=== PATIENT | male | born 1960 | race Caucasian/White ===

== ENCOUNTER 2016-11-27 03:06 | Inpatient (IN) | payer OTHER ==
[2016-11-27] VITALS (31 sets, daily range): BP systolic 64–145; BP diastolic 47–82; PULSE 74–101; TEMP 36.4–36.9; O2SAT 96–100; Ht 137.2 cm; Wt 112.4 kg
[~2016-11-27] VITALS: Ht 137.2 cm; Wt 112.4 kg
[2016-11-27] MEDS ORDERED: ACETAMINOPHEN 325 MG TAB PO PRN (04:00)
[2016-11-27] MEDS ORDERED: ZOLPIDEM TARTRATE 5 MG TAB PO PRN (04:00)
[2016-11-27] MEDS ORDERED: MoRPHine SULFATE 2 MG/ML CARP IV PRN (04:00)
[2016-11-27] MEDS ORDERED: NITROGLYCERIN 0.4 MG SL PER TAB CHARGE SL PRN (04:00)
[2016-11-27] MEDS ORDERED: ONDANSETRON INJ 2 MG/ML 2 ML VIAL IV PRN (04:00)
[2016-11-27] MEDS ORDERED: MAGNESIUM HYDROXIDE SUSP 30 ML UDC PO PRN (04:00)
[2016-11-27] MEDS ORDERED: POLYETHYLENE (MIRALAX) 17 GM PACK PO PRN (04:00)
[2016-11-27] MEDS ORDERED: ALUMINUM/MAGNESIUM/SIMETH (MAALOX MAX) 30 ML UDC PO PRN (04:00)
[2016-11-27] MEDS ORDERED: CLR10 PO (04:24)
[2016-11-27] MEDS ORDERED: LORA-741 PO (04:24)
[2016-11-27] MEDS ORDERED: ATOR-24 PO (04:24)
[2016-11-27] MEDS ORDERED: NVLGI/PEN (04:24)
[2016-11-27] MEDS ORDERED: FOLI1TAB7 PO (04:24)
[2016-11-27] MEDS ORDERED: ASPI1TAB83 PO (04:24)
[2016-11-27] MEDS ORDERED: CLOP1TAB15 PO (04:24)
[2016-11-27] MEDS ORDERED: ZNTT/150 PO (04:24)
[2016-11-27] MEDS ORDERED: OMEP10CA2 PO (04:24)
[2016-11-27] MEDS ORDERED: ESCI10TA17 PO (04:24)
[2016-11-27] MEDS ORDERED: LACTTAB4 (04:24)
[2016-11-27] MEDS ORDERED: ZNT150 (04:24)
[2016-11-27] MEDS ORDERED: B-CO1CAP17 PO (04:24)
[2016-11-27] MEDS ORDERED: LVMI (04:24)
[2016-11-27] MEDS ORDERED: CARV25TA PO (04:24)
[2016-11-27] MEDS ORDERED: VALS320T PO (04:24)
[2016-11-27] MEDS ORDERED: ZOLP5TAB6 PO (04:24)
[2016-11-27] MEDS ORDERED: BRIM0.2S (04:24)
[2016-11-27] MEDS ORDERED: DOXA-10 PO (04:24)
[2016-11-27] MEDS ORDERED: CHOL1000 PO (04:24)
[2016-11-27] MEDS ORDERED: BIMA0.01 OP (04:24)
--- NOTE | 2016-11-27 04:24 | History and Physical ---
History & Physical Date & Time of Service: Nov 27, 2016 at 04:01 Chief Complaint: Chf, Fluid Overload, Needs Dialysis Primary Care Physician: Tera Lomeli D.O. History of Present Illness Source: patient, family, spouse Mr Ailin Duenas is a 56 year old male with type 2 diabetes causing end-stage renal disease, on dialysis M/W/F, who also has had bilateral BKAs, who initially [facility]16 with worsening shortness of breath. He overall had been diagnosed with pneumonia by his PCP the Sunday prior to this (6 days ago) and was started on Cefpodoxime Sunday and Sunday after dialysis. On Sunday, he went to the [place] ED with shortness of breath starting at 10am that day. He was given nitropaste x 3. 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 Past Medical/Surgical History PMHx: Type 2 DM CHF GERD Hyperlipidemia Hypertension PAD PShx: Cataract Bilateral BKA Family History No pertinent FHx Social History Nonsmoker. Lives with . Uses wheelchair. Multi-Drug Resistant Organisms History of MDRO: No Allergies Coded Allergies: Shellfish Allergy (Verified Allergy, Severe, ANGIOEDEMA, 11/27/16) Hydromorphone (Verified Adverse Reaction, Unknown, HALLUCINATIONS, 11/27/16 ) Home Medications Scheduled Aspirin (Aspirin), 1 TAB PO DAILY Atorvastatin (Lipitor), 1 TAB PO DAILY Bimatoprost (Lumigan), 1 DROPS OP HS Carvedilol (Coreg), 1 TAB PO BID Cholecalciferol (Vitamin D3), 1 TAB PO DAILY Clopidogrel (Plavix), 75 MG PO DAILY Doxazosin Mesylate (Doxazosin Mesylate), 1 TAB PO DAILY Escitalopram (Lexapro), 10 MG PO DAILY Folic Acid (Folvite), 1 MG PO DAILY Loratadine (Claritin), 10 MG PO DAILY Ranitidine (Zantac), 150 MG PO BID Valsartan (Diovan), 320 MG PO DAILY Vitamin B Cmplx/Vitc/Folic Ac (Nephrocaps), 1 CAP PO DAILY Scheduled PRN Lorazepam (Ativan), 0.5 MG PO Q6H PRN for Anxiety Zolpidem Tartrate (Zolpidem Tartrate), 1 TAB PO HS PRN for Sleep Miscellaneous Medications Brimonidine Tartrate-Timolol M (Combigan) Insulin Aspart (Novolog Flexpen) Insulin Detemir (Levemir) Lactobacillus (Acidophilus) Omeprazole (Prilosec), 10 MG PO Review of Systems See HPI for pertinent positives & negatives. A total of 10 systems reviewed and were otherwise negative. Physical Exam Vital Signs VS: HR 95, 96% on O2 2L, RR 17 General Appearance: WD/WN, + mild distress Head: normocephalic, atraumatic Eyes: normal inspection ENT: hearing grossly normal Neck: supple, no JVD Respiratory/Chest: + crackles (bilaterally), + rales Cardiovascular: regular rate, rhythm, no murmur Abdomen/GI: non tender, soft Extremities/Musculoskelatal: no calf tenderness, no pedal edema Neurologic/Psych: alert, normal mood/affect Skin: no rash Diagnostics Diagnostic Radiology CXR from outside facility: report reads Multifocal bilateral perihilar airspace disease with mild cardiomegaly. Findings may represent CHF or multifocal pneumonia. EKG NSR 96bpm with 1st degree AV block. No ST elevation. Impression Assessment and Plan Documented By: Rob Simpson 56 yo M with end stage renal disease, on dialysis, with shortness of breath - likely CHF exacerbation as opposed to pneumonia as pt is afebrile and has nonproductive cough Plan CHF exacerbation from volume overload - Urgent nephrology consult for dialysis (4:30AM- Spoke with Dr Beauchamp about the case. He will evaluate / discuss with the dialysis nurse) - CXR afterwards - Would consider CT scan if no improvement End stage renal disease - Continue Vit D3, Nephrocaps CAD - Continue aspirin/plavix Hypertension - Continue cardevilol 25mg BID Hypercholesterolemia - Continue atorvastatin 40mg daily CODE STATUS: Pt has advance directive, reports he would only want to be intubated for 72 hours if it came to it, and would want CPR. is POA. VTE: Heparin Dispo: Telemetry Resident Physician Supervision Note: I was present with resident during the history and exam. I discussed the case with the resident and agree with the findings and plan as documented in the note. Pt seen/examined personally He is maintaining an adequate sat but tachypneic and markedly uncomfortable He was diagnosed with pneumonia clinically the previous week - he does not have a temp or leukocytosis but c/o a productive cough and as treated with Cefpodoxime P: - contact Dialysis service urgently - repeat CXR to assess for PNM following dialysis If he does not improve clinically and there are no clear infiltrates on XR would proceed to CT - we can cont abx in the interim Above plan discussed with pt/family and resident Level of Care Critical Care Resuscitation Status FULL RESUSCITATION VTE Prophylaxis VTE Risk Assessment Done? Y/N: Yes Risk Level: Low Resident Tracking Resident Involvement: Resident Care Provided Care Provided: Adult Hospital Medicine
[2016-11-27] MEDS ORDERED: LORAZEPAM 0.5 MG TAB PO PRN (04:30)
[2016-11-27] MEDS: NITROGLYCERIN OINT 2% 1GM PACKET EXT SCH ×4 (05:27→23:58)
--- NOTE | 2016-11-27 06:02 | Nephrology Consultation ---
Nephrology Consultation Date & Providers Date of Consultation: Nov 27, 2016. Primary Care Provider: Tera Lomeli D.O. Referring Provider: Reason for Consultation ESRD History of Present Illness Mr. Ailin Duenas is a very pleasant morbidly obese 56 year-old male who was seen and evaluated this morning to expedite hemodialysis in the setting of acute respiratory distress. The patient was seen and evaluated with his at the bedside. Mr. Duenas has ESRD attributed to diabetic nephropathy. He has been on hemodialysis under the care of Dr. Enrique Abebe in [place] for the past 3 years. Mr. Duenas is maintained on a MWF HD scheduled. He has not missed any recent dialysis treatments. His last treatment on Sunday was completed without complications. EDW is 113 kg. Net UF on Sunday was 2.5 kg. Average UF 2-3 kg. Mr. Duenas makes little urine. Mr. Duenas presented to [facility] late yesterday evening with worsening shortness of breath. He notes that around 10:30 PM he started to have acutely worsening dyspnea. His noted that his breathing was very labored and insisted that he go to the ER at [facility]. He described significant orthopnea. He is much more comfortable sitting upright. His says she has never seen him like this before. Shortness of breath started last Sunday. He had a non-productive cough and notable wheeze. Breathing treatments provided minimal relief. On Sunday, he was started on cefpodoxime. He took doses following dialysis on Sunday and Sunday and reported some initial improvement in symptoms. On presentation to the ED in [place], nitropaste was applied in the setting of mildly accelerated blood pressure. Documentation of the CXR report was reviewed describing multifocal bilateral perihilar airspace disease with mild cardiomegaly. EKG obtained on presentation to [facility] shows sinus rhythm @ 93 bpm with a first degree AV block and intraventricular conduction delay. On my evaluation, Mr. Duenas was tired but reported some improvement in resting dyspnea. Severe orthopnea persists. He denies fevers or chills. Past Medical/Surgical History Medical: ESRD attributed to diabetic nephropathy: on Hemodialysis under the care of Dr. Enrique Abebe in [place] for the past 3 years; COPD; CHF; DM; morbid obesity; GERD ; hyperlipidemia; hypertension Surgical: Bilateral BKA, AVF, cataract Allergies Coded Allergies: Shellfish Allergy (Verified Allergy, Severe, ANGIOEDEMA, 11/27/16) Hydromorphone (Verified Adverse Reaction, Unknown, HALLUCINATIONS, 11/27/16 ) Inpatient Medications Current Inpatient Medications Medications (Trade) Dose Ordered Sig/Miguel Route Start Time Stop Time Status Last Admin Dose Admin Heparin Sodium (Porcine) (Heparin Sq 5000 Unit/0.5ml) 5,000 unit Q8 SQ 11/27/16 06:00 12/27/16 05:59 UNV Acetaminophen (Tylenol Tab) 650 mg Q4H PRN PO 11/27/16 04:00 12/27/16 03:59 Al Hydrox/Mg Hydrox/Simethicone (Maalox Max Susp) 15 ml Q4H PRN PO 11/27/16 04:00 12/27/16 03:59 Magnesium Hydroxide (Milk Of Magnesia Susp) 30 ml Q12H PRN PO 11/27/16 04:00 12/27/16 03:59 Zolpidem Tartrate (Ambien Tab) 5 mg HSZ PRN PO 11/27/16 04:00 12/27/16 03:59 Ondansetron HCl (Zofran Inj) 4 mg Q6H PRN IV 11/27/16 04:00 12/27/16 03:59 Nitroglycerin (Nitrostat Tab) 0.4 mg UD PRN SL 11/27/16 04:00 12/27/16 03:59 Nitroglycerin (Nitroglycerin 2% Oint) 1 inch Q6 EXT 11/27/16 05:00 12/27/16 04:59 Morphine Sulfate (MoRPHine SULFATE INJ) 2 mg Q30M PRN IV 11/27/16 04:00 12/11/16 03:59 Polyethylene (Miralax Powder Packet) 17 gm DAILY PRN PO 11/27/16 04:00 12/27/16 03:59 Aspirin (Ecotrin Tab) 81 mg DAILY PO 11/27/16 09:00 12/27/16 08:59 Atorvastatin Calcium (Lipitor Tab) 40 mg DAILY PO 11/27/16 09:00 12/27/16 08:59 Carvedilol (Coreg Tab) 25 mg BID PO 11/27/16 09:00 12/27/16 08:59 Clopidogrel Bisulfate (plAVix TAB) 75 mg DAILY PO 11/27/16 09:00 12/27/16 08:59 Escitalopram Oxalate (Lexapro Tab) 10 mg DAILY PO 11/27/16 09:00 12/27/16 08:59 Folic Acid (Folvite Tab) 1 mg DAILY PO 11/27/16 09:00 12/27/16 08:59 Loratadine (Claritin Tab) 10 mg DAILY PO 11/27/16 09:00 12/27/16 08:59 Lorazepam (Ativan Tab) 0.5 mg Q6H PRN PO 11/27/16 04:30 12/27/16 04:29 Ranitidine HCl (zANTac TAB) 150 mg BID PO 11/27/16 09:00 12/27/16 08:59 Valsartan (Diovan Tab) 320 mg DAILY PO 11/27/16 09:00 12/27/16 08:59 Vitamin B Complex/ Vit C/Folic Acid (Nephrocaps) 1 cap DAILY PO 11/27/16 09:00 12/27/16 08:59 Social History Smoking Status: Never Smoker Review of Systems A complete review of systems was performed. Pertinent positives are noted above. All other systems are negative. Physical Exam Date Time Temp Pulse Resp B/P Pulse Ox O2 Delivery O2 Flow Rate FiO2 11/27/16 02:25 36.7 101 23 116/71 96 Nasal Cannula 2.0 General Appearance: + obese, + pertinent finding (tired, answers questions appropriately in short sentences) Head: normocephalic, atraumatic Eyes: normal inspection, sclerae normal ENT: pharynx normal, + pertinent finding (O2 via NX) Neck: + pertinent finding (Thick, supple, unable to appreciate neck veins) Respiratory/Chest: + decreased breath sounds, + rales (basilar), + wheezing Cardiovascular: regular rate, rhythm, no gallop, no murmur Abdomen/GI: + pertinent finding (Obese, soft, non tender) Extremities/Musculoskelatal: + pertinent finding (BL BKA; LUE BC AVF with thrill and bruit) Neurologic/Psych: alert, oriented x 3 Skin: normal color Laboratory Results Last 24 Hours Test 11/27/16 04:29 11/27/16 04:44 11/27/16 05:04 Bedside Glucose 268 mg/dl Impression (1) ESRD (end stage renal disease) on dialysis (2) COPD (chronic obstructive pulmonary disease) (3) Multifocal pneumonia (4) CHF exacerbation (5) Acute respiratory distress Mr. Ailin Duenas is a morbidly obese 56-year-old male with ESRD attributed to diabetic nephropathy who was transferred to the ICU at [facility] from [facility] ED this morning with acute respiratory distress. Medical history is also notable for COPD. The patient was diagnosed with pneumonia approximately 1 week ago and started on cefpodoxime. Unfortunately, respiratory symptoms have been worsening over the past 12 hours. There has been initial improvement with nitropaste and supplemental oxygen. CXR report documenting multifocal bilateral airspace disease. Blood pressure is currently appropriate. Metabolic profile pending. We will expedite hemodialysis this morning for UF and challenge EDW as tolerated. Nitropaste to be removed prior to dialysis to assist with UF.
[2016-11-27 06:04] LABS: BASO % 0.5 %; BASO ABS # 0.04 K/uL (0-0.2); COMPLETE YES; HEMATOCRIT 30.9 % (42-52); IG% 0.2 %; LYMPH ABS # 1.19 K/uL (1.2-3.4); MEAN CELL VOLUME 91.7 fL (80-100); MEAN CORPUSCULAR HEMOGLOBIN 29.7 pg (25-34); MEAN CORPUSCULAR HGB CONC 32.4 g/dl (32-36); MEAN PLATELET VOLUME 9.4 fL (7.4-10.4); NEUT % 76.3 %; PLATELET COUNT 208 K/uL (130-400); RED BLOOD COUNT 3.37 M/uL (4.7-6.1); WHITE BLOOD COUNT 8.47 K/uL (4.8-10.8)
[2016-11-27 06:15] LABS: PROTHROMBIN TIME (PATIENT) 10.6 SECONDS (9.0-12.0)
[2016-11-27] MEDS ORDERED: HEPARIN SOD (PORCINE) 1000 UNIT/ML 10 ML VIAL IV SCH (06:15)
[2016-11-27 06:53] LABS: ALB/GLOB RATIO 0.8 (0.9-2); BUN/CREATININE RATIO 11.5 (10-20); CALCIUM 8.4 mg/dl (8.5-10.1); CREATININE 6.8 mg/dl (0.60-1.40); POTASSIUM 5.6 mmol/L (3.5-5.1)
[2016-11-27] MEDS: HEPARIN SOD 5000 UNIT/0.5 ML CARP SQ SCH ×3 (07:20→21:09)
[2016-11-27] MEDS ORDERED: RANITIDINE HCL 150 MG TAB PO SCH (09:00)
[2016-11-27] MEDS ORDERED: PHARMACY GLYCEMIC MGMT CONSULT PRN (09:15)
[2016-11-27] MEDS: INSULIN ASPART 100 UNITS/ML 3 ML PEN SC SCH ×4 (09:30→21:10)
[2016-11-27 09:45] LABS: HEPATITIS B AB POS
[2016-11-27] MEDS: INSULIN DETEMIR SC SCH ×2 (09:46→21:09)
--- NOTE | 2016-11-27 10:26 | Clinical Documentation Query ---
ESEQUIEL Aiken : CLINICAL DOCUMENTATION QUERY Patient is a 56 year old male admitted for CHF secondary to volume overload in the setting of ESRD. As appropriate, consider documentation as below as this allows for coding capture of patient's substantial BMI. Thank you. In your clinical opinion is this patient being managed for: ( x ) Morbid obesity ( ) Other explanation of clinical findings (Please Explain) ( ) Unable to determine (Please Define) ( ) Need to Discuss ( ) Not Agree The medical record reflects the following clinical findings, treatment, and risk factors. Clinical Indicators: BMI 61.2 Kg/m*m Treatment: NPO, glycemic control consultation Risk Factors: DM type 2, physical inactivity Clarification - BMI Reporting Coding Clinic [id number], p15 Question: There has been some confusion as to whether nursing staff documentation is acceptable for assigning BMI. Since hospitals are allowed to code the BMI based on the project manager retail's documentation, it would seem reasonable to assign the BMI based on the nurse's documentation as well. Can coders use nursing documentation to assign the BMI? Answer: Yes, the BMI can be assigned based on medical record documentation from clinicians, including nurses and dieticians who are not the patient's provider. As stated in the Official Guidelines for Coding and Reporting, BMI code assignment may be based on medical record documentation from clinicians who are not the patient's provider, since this information is typically documented by other clinicians involved in the care of the patient. Dieticians were only mentioned as an example of a clinician that might document BMI information. However, the associated diagnosis (such as overweight, obesity, or underweight) must be documented by the provider. Please clarify and document your clinical opinion in the progress notes and discharge summary. Terms such as "probable", "suspected", "likely", "questionable", "possible", or "still to be ruled out" are acceptable. IF IN AGREEMENT, YOU MUST DOCUMENT ABOVE DIAGNOSTIC STATEMENT IN DAILY PROGRESS NOTES AND DISCHARGE SUMMARY. This document is not part of the patient's record. Thank You, Bird Jara, RN [phone]
--- NOTE | 2016-11-27 12:25 | Dialysis Progress Note ---
Hemodialysis Note Date of Service Nov 27, 2016. Review of Systems A complete review of systems was performed. Pertinent positives are noted above. All other systems are negative. Vital Signs Last 8 Hrs Date Time Temp Pulse Resp B/P Pulse Ox O2 Delivery O2 Flow Rate FiO2 11/27/16 12:00 78 76/51 11/27/16 12:00 36.8 78 14 76/51 100 Nasal Cannula 2.0 11/27/16 12:00 Nasal Cannula 2.0 11/27/16 11:45 77 81/49 11/27/16 11:30 77 77/47 11/27/16 11:15 80 79/48 11/27/16 11:01 80 83/49 11/27/16 11:00 77 70/55 11/27/16 10:45 78 88/67 11/27/16 10:30 79 105/61 11/27/16 10:15 79 88/57 11/27/16 10:00 82 116/63 11/27/16 09:45 79 104/66 11/27/16 09:30 79 109/73 11/27/16 09:15 80 129/66 11/27/16 09:00 84 135/82 11/27/16 08:52 36.9 82 136/72 11/27/16 08:00 36.9 83 20 145/77 98 Nasal Cannula 2.0 11/27/16 08:00 Nasal Cannula 2.0 11/27/16 05:30 36.4 82 20 142/81 97 Nasal Cannula 2.0 I & O 24-Hour Column 11/27/16 08:00 Intake Total 0 ml Balance 0 ml Last Recorded Weight Weight (Kilograms): 116.900 Laboratory Results Past 24 Hours 11/27/16 05:55 Red Blood Count 3.37, Mean Corpuscular Volume 91.7, Mean Corpuscular Hemoglobin 29.7, Mean Corpuscular Hemoglobin Concent 32.4, Mean Platelet Volume 9.4, Neutrophils (%) (Auto) 76.3, Lymphocytes (%) (Auto) 14.0, Monocytes (%) (Auto) 6.0, Eosinophils (%) (Auto) 3.0, Basophils (%) (Auto) 0.5, Neutrophils # (Auto) 6.46, Lymphocytes # (Auto) 1.19, Monocytes # (Auto) 0.51, Eosinophils # (Auto) 0.25, Basophils # (Auto) 0.04 11/27/16 05:55 Test 11/27/16 04:29 11/27/16 05:55 11/27/16 08:40 11/27/16 11:07 Bedside Glucose 268 mg/dl (70-99) 146 mg/dl (70-99) White Blood Count 8.47 K/uL (4.8-10.8) Red Blood Count 3.37 M/uL (4.7-6.1) Hemoglobin 10.0 g/dL (14.0-18.0) Hematocrit 30.9 % (42-52) Mean Corpuscular Volume 91.7 fL (80-100) Mean Corpuscular Hemoglobin 29.7 pg (25-34) Mean Corpuscular Hemoglobin Concent 32.4 g/dl (32-36) Platelet Count 208 K/uL (130-400) Mean Platelet Volume 9.4 fL (7.4-10.4) Neutrophils (%) (Auto) 76.3 % Lymphocytes (%) (Auto) 14.0 % Monocytes (%) (Auto) 6.0 % Eosinophils (%) (Auto) 3.0 % Basophils (%) (Auto) 0.5 % Neutrophils # (Auto) 6.46 K/uL (1.4-6.5) Lymphocytes # (Auto) 1.19 K/uL (1.2-3.4) Monocytes # (Auto) 0.51 K/uL (0.11-0.59) Eosinophils # (Auto) 0.25 K/uL (0-0.5) Basophils # (Auto) 0.04 K/uL (0-0.2) RDW Standard Deviation 52.6 fL (36.4-46.3) RDW Coefficient of Variation 15.7 % (11.5-14.5) Immature Granulocyte % (Auto) 0.2 % Immature Granulocyte # (Auto) 0.02 K/uL (0.00-0.02) Prothrombin Time 10.6 SECONDS (9.0-12.0) Prothromb Time International Ratio 1.0 (0.9-1.1) Activated Partial Thromboplast Time 27.2 SECONDS (21.0-31.0) Partial Thromboplastin Ratio 1.0 Anion Gap 10.0 mmol/L (3-11) Est Creatinine Clear Calc Drug Dose 11.6 ml/min Estimated GFR () 9.6 Estimated GFR (Non- 8.3 BUN/Creatinine Ratio 11.5 (10-20) Calcium Level 8.4 mg/dl (8.5-10.1) Total Bilirubin 0.3 mg/dl (0.2-1) Aspartate Amino Transf (AST/SGOT) 12 U/L (15-37) Alanine Aminotransferase (ALT/SGPT) 22 U/L (12-78) Alkaline Phosphatase 130 U/L (45-117) Total Protein 7.3 gm/dl (6.4-8.2) Albumin 3.2 gm/dl (3.4-5.0) Globulin 4.1 gm/dl (2.5-4.0) Albumin/Globulin Ratio 0.8 (0.9-2) Hepatitis C Antibody Screen NEG (NEG) Hepatitis B Surface Antigen NEG (NEG) Hepatitis B Surface Antibody POS Allergies Coded Allergies: Shellfish Allergy (Verified Allergy, Severe, ANGIOEDEMA, 11/27/16) Hydromorphone (Verified Adverse Reaction, Unknown, HALLUCINATIONS, 11/27/16 ) Medications Current Inpatient Medications Medications (Trade) Dose Ordered Sig/Miguel Route Start Time Stop Time Status Last Admin Dose Admin Heparin Sodium (Porcine) (Heparin Sq 5000 Unit/0.5ml) 5,000 unit Q8 SQ 11/27/16 07:15 12/27/16 07:14 11/27/16 07:20 5,000 UNIT Acetaminophen (Tylenol Tab) 650 mg Q4H PRN PO 11/27/16 04:00 12/27/16 03:59 Al Hydrox/Mg Hydrox/Simethicone (Maalox Max Susp) 15 ml Q4H PRN PO 11/27/16 04:00 12/27/16 03:59 Magnesium Hydroxide (Milk Of Magnesia Susp) 30 ml Q12H PRN PO 11/27/16 04:00 12/27/16 03:59 Zolpidem Tartrate (Ambien Tab) 5 mg HSZ PRN PO 11/27/16 04:00 12/27/16 03:59 Ondansetron HCl (Zofran Inj) 4 mg Q6H PRN IV 11/27/16 04:00 12/27/16 03:59 Nitroglycerin (Nitrostat Tab) 0.4 mg UD PRN SL 11/27/16 04:00 12/27/16 03:59 Nitroglycerin (Nitroglycerin 2% Oint) 1 inch Q6 EXT 11/27/16 05:00 12/27/16 04:59 11/27/16 05:27 1 INCH Morphine Sulfate (MoRPHine SULFATE INJ) 2 mg Q30M PRN IV 11/27/16 04:00 12/11/16 03:59 Polyethylene (Miralax Powder Packet) 17 gm DAILY PRN PO 11/27/16 04:00 12/27/16 03:59 Aspirin (Ecotrin Tab) 81 mg DAILY PO 11/27/16 09:00 12/27/16 08:59 Atorvastatin Calcium (Lipitor Tab) 40 mg DAILY PO 11/27/16 09:00 12/27/16 08:59 Carvedilol (Coreg Tab) 25 mg BID PO 11/27/16 09:00 12/27/16 08:59 Clopidogrel Bisulfate (plAVix TAB) 75 mg DAILY PO 11/27/16 09:00 12/27/16 08:59 Escitalopram Oxalate (Lexapro Tab) 10 mg DAILY PO 11/27/16 09:00 12/27/16 08:59 Folic Acid (Folvite Tab) 1 mg DAILY PO 11/27/16 09:00 12/27/16 08:59 Loratadine (Claritin Tab) 10 mg DAILY PO 11/27/16 09:00 12/27/16 08:59 Lorazepam (Ativan Tab) 0.5 mg Q6H PRN PO 11/27/16 04:30 12/27/16 04:29 Ranitidine HCl (zANTac TAB) 150 mg BID PO 11/27/16 09:00 12/27/16 08:59 Valsartan (Diovan Tab) 320 mg DAILY PO 11/27/16 09:00 12/27/16 08:59 Vitamin B Complex/ Vit C/Folic Acid (Nephrocaps) 1 cap DAILY PO 11/27/16 09:00 12/27/16 08:59 Heparin Sodium (Porcine) (Heparin Iv Bolus) 2,000 unit TODAY@0615 IV 11/27/16 06:15 11/27/16 15:15 Miscellaneous Information (Consult Glycemic Management Pharmacy) 1 ea UD PRN N/A 11/27/16 09:15 2 09:14 Insulin Detemir (Levemir Insulin) 40 units BID SC 11/27/16 09:30 2 09:29 11/27/16 09:46 40 UNITS Insulin Aspart (novoLOG ASPART) SLIDING SCALE Q6 SC 11/27/16 09:30 2 09:29 Impression (1) ESRD (end stage renal disease) on dialysis (2) COPD (chronic obstructive pulmonary disease) (3) Multifocal pneumonia (4) CHF exacerbation (5) Acute respiratory distress Mr. Ailin Duenas is a morbidly obese 56-year-old male with ESRD attributed to diabetic nephropathy who was transferred to the ICU at [facility] from [facility] ED this morning with acute respiratory distress. Medical history is also notable for COPD. The patient was diagnosed with pneumonia approximately 1 week ago and started on cefpodoxime. Unfortunately, respiratory symptoms have been worsening over the past 12 hours. There has been initial improvement with nitropaste and supplemental oxygen. CXR report documenting multifocal bilateral airspace disease. Blood pressure is currently appropriate. Metabolic profile pending. We will expedite hemodialysis this morning for UF and challenge EDW as tolerated. Nitropaste to be removed prior to dialysis to assist with UF. Recommendations Patient seen & examined during HD in the ICU this afternoon. He is on a 2K 2Ca 1.0Mg bath w/ F-180 NR filter. AVF is functioning well. Patient has had ~ 2.5 L UF. SBP has been 85 mmHG but patient is asymptomatic. He reports that his SBP typically runs 80 - 90 mmHG. Will continue current dialysis prescription. No change at present. Will order CXR to reassess CHF following HD.
--- NOTE | 2016-11-27 12:37 | Progress Note ---
Subjective Date of Service: Nov 27, 2016. Subjective Pt evaluation today including: conversation w/ patient Pt states his SOB feels improved, but nursing feels he is about the same. He is exhausted also. Ate without issue. Pt denies fever, chest pain, abd pain, n /v/c/d, LE pain or swelling. ROS as noted above, otherwise neg. Objective Vital Signs Date Time Temp Pulse Resp B/P Pulse Ox O2 Delivery O2 Flow Rate FiO2 11/27/16 12:20 78 86/51 11/27/16 12:15 77 64/47 11/27/16 12:00 78 76/51 11/27/16 12:00 36.8 78 14 76/51 100 Nasal Cannula 2.0 11/27/16 12:00 Nasal Cannula 2.0 11/27/16 11:45 77 81/49 11/27/16 11:30 77 77/47 11/27/16 11:15 80 79/48 11/27/16 11:01 80 83/49 11/27/16 11:00 77 70/55 11/27/16 10:45 78 88/67 11/27/16 10:30 79 105/61 11/27/16 10:15 79 88/57 11/27/16 10:00 82 116/63 11/27/16 09:45 79 104/66 11/27/16 09:30 79 109/73 11/27/16 09:15 80 129/66 11/27/16 09:00 84 135/82 11/27/16 08:52 36.9 82 136/72 11/27/16 08:00 36.9 83 20 145/77 98 Nasal Cannula 2.0 11/27/16 08:00 Nasal Cannula 2.0 11/27/16 05:30 36.4 82 20 142/81 97 Nasal Cannula 2.0 11/27/16 02:25 36.7 101 23 116/71 96 Nasal Cannula 2.0 Physical Exam General Appearance: no apparent distress, + obese Respiratory/Chest: no respiratory distress, + rhonchi, + wheezing Cardiovascular: regular rate, rhythm, no edema Abdomen: non tender, soft Extremities: non-tender, no pedal edema Neurologic/Psychiatric: alert, oriented x 3 Skin: normal color, warm/dry Laboratory Results Last 24 Hours Test 11/27/16 04:29 11/27/16 05:55 11/27/16 08:40 11/27/16 11:07 Bedside Glucose 268 mg/dl 146 mg/dl White Blood Count 8.47 K/uL Red Blood Count 3.37 M/uL Hemoglobin 10.0 g/dL Hematocrit 30.9 % Mean Corpuscular Volume 91.7 fL Mean Corpuscular Hemoglobin 29.7 pg Mean Corpuscular Hemoglobin Concent 32.4 g/dl Platelet Count 208 K/uL Mean Platelet Volume 9.4 fL Neutrophils (%) (Auto) 76.3 % Lymphocytes (%) (Auto) 14.0 % Monocytes (%) (Auto) 6.0 % Eosinophils (%) (Auto) 3.0 % Basophils (%) (Auto) 0.5 % Neutrophils # (Auto) 6.46 K/uL Lymphocytes # (Auto) 1.19 K/uL Monocytes # (Auto) 0.51 K/uL Eosinophils # (Auto) 0.25 K/uL Basophils # (Auto) 0.04 K/uL RDW Standard Deviation 52.6 fL RDW Coefficient of Variation 15.7 % Immature Granulocyte % (Auto) 0.2 % Immature Granulocyte # (Auto) 0.02 K/uL Prothrombin Time 10.6 SECONDS Prothromb Time International Ratio 1.0 Activated Partial Thromboplast Time 27.2 SECONDS Partial Thromboplastin Ratio 1.0 Sodium Level 139 mmol/L Potassium Level 5.6 mmol/L Chloride Level 102 mmol/L Carbon Dioxide Level 27 mmol/L Anion Gap 10.0 mmol/L Blood Urea Nitrogen 78 mg/dl Creatinine 6.80 mg/dl Est Creatinine Clear Calc Drug Dose 11.6 ml/min Estimated GFR () 9.6 Estimated GFR (Non- 8.3 BUN/Creatinine Ratio 11.5 Random Glucose 255 mg/dl Calcium Level 8.4 mg/dl Total Bilirubin 0.3 mg/dl Aspartate Amino Transf (AST/SGOT) 12 U/L Alanine Aminotransferase (ALT/SGPT) 22 U/L Alkaline Phosphatase 130 U/L Total Protein 7.3 gm/dl Albumin 3.2 gm/dl Globulin 4.1 gm/dl Albumin/Globulin Ratio 0.8 Hepatitis C Antibody Screen NEG Hepatitis B Surface Antigen NEG Hepatitis B Surface Antibody POS Assessment and Plan 56 yo M with end stage renal disease, on dialysis, with shortness of breath - likely CHF exacerbation as opposed to pneumonia as pt is afebrile and has nonproductive cough CHF exacerbation from volume overload - Urgent nephrology consult for dialysis, undergoing at present - CXR after - Would consider CT scan if no improvement End stage renal disease - Continue Vit D3, Nephrocaps CAD - Continue aspirin/plavix Hypertension - Continue cardevilol 25mg BID Hypercholesterolemia - Continue atorvastatin 40mg daily Morbid obesity CODE STATUS: Pt has advance directive, reports he would only want to be intubated for 72 hours if it came to it, and would want CPR. is POA. VTE: Heparin Dispo: Telemetry
[2016-11-27] MEDS ORDERED: ALBUT/IPRATROP 3MG/0.5MG NEB 3 ML VIAL INH PRN (12:45)
[2016-11-27] MEDS ORDERED: ALBUT/IPRATROP 3MG/0.5MG NEB 3 ML VIAL INH STA (12:58)
--- NOTE | 2016-11-27 13:10 | Pharmacy Progress Note ---
Glycemic Control Intl Consult Date of Service Nov 27, 2016. Scope Glycemic Pharmacist consulted by Dr Holliday on 11/27/16 for glycemic control and to write orders per [facility] inpatient glycemic control protocol. Objective Weight (Kilograms): 116.900 Accuchecks BSG (last 24hrs): Test 11/27/16 04:29 11/27/16 05:55 11/27/16 11:07 Bedside Glucose 268 mg/dl (70-99) 146 mg/dl (70-99) Random Glucose 255 mg/dl (70-99) Laboratory Data (last 24hrs) Test 11/27/16 05:55 Anion Gap 10.0 mmol/L BUN/Creatinine Ratio 11.5 Blood Urea Nitrogen 78 mg/dl Creatinine 6.80 mg/dl Potassium Level 5.6 mmol/L Sodium Level 139 mmol/L White Blood Count 8.47 K/uL Red Blood Count 3.37 M/uL Hemoglobin 10.0 g/dL Hematocrit 30.9 % Mean Corpuscular Volume 91.7 fL Mean Corpuscular Hemoglobin 29.7 pg Mean Corpuscular Hemoglobin Concent 32.4 g/dl Platelet Count 208 K/uL Mean Platelet Volume 9.4 fL Neutrophils (%) (Auto) 76.3 % Lymphocytes (%) (Auto) 14.0 % Monocytes (%) (Auto) 6.0 % Eosinophils (%) (Auto) 3.0 % Basophils (%) (Auto) 0.5 % Neutrophils # (Auto) 6.46 K/uL Lymphocytes # (Auto) 1.19 K/uL Monocytes # (Auto) 0.51 K/uL Eosinophils # (Auto) 0.25 K/uL Basophils # (Auto) 0.04 K/uL Recent Pertinent Medications Outpatient Anti-diabetic Regimen: * Levemir 60 units SQ BID * Novolog SSI * can range from 10-40 units per dose, per discussion with pt's * A1c = difficult to interpret in the setting of ESRD/dialysis Risk Factors for Insulin Resistance: * Diet: NPO except meds Assessment & Plan ASSESSMENT: * Patient is a 56yo diabetic male with significant PMH including ESRD on dialysis (M,W,F), s/p bilateral BKA, CHF, PAD. * Pt has been hyperglycemic since admission, with unknown glycemic control as an outpt d/t inability to utilize HbA1c in dialysis patients. * Pt received dialysis this morning. * Will initiate Levemir at a reduced dose while pt is NPO and adjust as needed during admission. * Insulin dosing discussed with patient's this morning to confirm current use. * ADA & AACE recommend a goal blood sugar range 140-180 mg/dl for the majority of critically ill & non-critically ill patients. However, more stringent targets may be selected in individual cases. PLAN FOR INPATIENT GLYCEMIC CONTROL: * Basal insulin with LEVEMIR 40 units SQ BID * give 1/2 dose only for BSGs less than 120mg/dL * Correctional Insulin with NOVOLOG per scale ACHS or Q6hrs while NPO * Goal Range: Low 140 mg/dL - High 180 mg/dL * Correction Factor: 15 mg/dL/unit * Nutritional / Prandial insulin per carb ratio of 1 unit per 8 grams CHO consumed * Please note that the plan above was derived based on current level of insulin resistance and hospital stress. These recommendations are appropriate for inpatient admission only. Plan of care upon discharge will need to be reassessed to avoid potential outpatient hypo/hyperglycemia. Thank you.
[2016-11-27] MEDS: RANITIDINE HCL 150 MG TAB PO SCH ×2 (15:07→21:11)
[2016-11-27] MEDS: LORATADINE 10 MG TAB PO SCH (15:07)
[2016-11-27] MEDS: HEPARIN SOD (PORCINE) 1000 UNIT/ML 10 ML VIAL IV SCH ×2 (15:07→16:05)
[2016-11-27] MEDS: ESCITALOPRAM OXALATE 10 MG TAB PO SCH (15:07)
[2016-11-27] MEDS: ATORVASTATIN 40 MG TAB PO SCH (15:07)
[2016-11-27] MEDS: NEPHROCAPS PO SCH (15:07)
[2016-11-27] MEDS: CLOPIDOGREL BISULFATE 75 MG TAB PO SCH (15:07)
[2016-11-27] MEDS: CARVEDILOL 25 MG TAB PO SCH ×2 (15:07→21:11)
[2016-11-27] MEDS: ASPIRIN 81 MG ECTAB PO SCH (15:07)
[2016-11-27] MEDS: VALSARTAN 80 MG TAB PO SCH (15:08)
--- NOTE | 2016-11-27 15:37 | DIAGNOSTIC IMAGING REPORT ---
CHEST ONE VIEW PORTABLE CLINICAL HISTORY: Congestive heart failure. COMPARISON STUDY: No previous studies for comparison. FINDINGS: Lung volumes are at the lower limits of normal. There is no pneumothorax. There is hazy left basilar opacity. There may be a small left pleural effusion. There is pulmonary vascular congestion without overt pulmonary edema. Moderate cardiomegaly is noted. A few metallic densities within the left chest wall are noted. IMPRESSION: 1. Moderate cardiomegaly. Pulmonary vascular congestion. 2. Hazy left basilar opacity with a possible small left pleural effusion. Radiographic follow-up is recommended. Electronically signed by: Lalit Prince M.D. 11/27/2016 3:35 PM Dictated Date/Time: 11/27/2016 3:34 PM
[2016-11-27] MEDS ORDERED: NURSING VERBAL MED ORDER ONE (16:15)
[2016-11-28] VITALS (9 sets, daily range): BP systolic 90–128; BP diastolic 53–65; PULSE 74–84; TEMP 36.6–36.8; O2SAT 95–100
[2016-11-28] MEDS: NITROGLYCERIN OINT 2% 1GM PACKET EXT SCH (05:29)
[2016-11-28] MEDS: HEPARIN SOD 5000 UNIT/0.5 ML CARP SQ SCH (05:30)
[2016-11-28 05:41] LABS: BASO % 0.6 %; BASO ABS # 0.04 K/uL (0-0.2); COMPLETE YES; EOS % 4.2 %; HEMATOCRIT 30.5 % (42-52); IG% 0.1 %; LYMPH % 22.3 %; LYMPH ABS # 1.58 K/uL (1.2-3.4); MEAN CELL VOLUME 92.4 fL (80-100); MEAN CORPUSCULAR HEMOGLOBIN 30.3 pg (25-34); MEAN CORPUSCULAR HGB CONC 32.8 g/dl (32-36); MEAN PLATELET VOLUME 9.6 fL (7.4-10.4); MONO % 8.9 %; NEUT % 63.9 %; PLATELET COUNT 192 K/uL (130-400); WHITE BLOOD COUNT 7.07 K/uL (4.8-10.8)
[2016-11-28 06:07] LABS: PARTIAL THROMBOPLASTIN RATIO 1.1; PROTHROMBIN TIME (PATIENT) 11.2 SECONDS (9.0-12.0)
[2016-11-28 06:22] LABS: ALB/GLOB RATIO 0.8 (0.9-2); BUN/CREATININE RATIO 8.6 (10-20); CALCIUM 8.2 mg/dl (8.5-10.1); CREATININE 5.1 mg/dl (0.60-1.40); POTASSIUM 4.3 mmol/L (3.5-5.1)
[2016-11-28] MEDS: INSULIN ASPART 100 UNITS/ML 3 ML PEN SC SCH ×2 (06:45→08:41)
[2016-11-28] MEDS: LORATADINE 10 MG TAB PO SCH (08:29)
[2016-11-28] MEDS: CARVEDILOL 25 MG TAB PO SCH (08:30)
[2016-11-28] MEDS: ASPIRIN 81 MG ECTAB PO SCH (08:31)
[2016-11-28] MEDS: ESCITALOPRAM OXALATE 10 MG TAB PO SCH (08:31)
[2016-11-28] MEDS: NEPHROCAPS PO SCH (08:31)
[2016-11-28] MEDS: ATORVASTATIN 40 MG TAB PO SCH (08:31)
[2016-11-28] MEDS: VALSARTAN 80 MG TAB PO SCH (08:31)
[2016-11-28] MEDS: RANITIDINE HCL 150 MG TAB PO SCH (08:32)
[2016-11-28] MEDS: CLOPIDOGREL BISULFATE 75 MG TAB PO SCH (08:32)
[2016-11-28] MEDS: INSULIN DETEMIR SC SCH (08:38)
--- NOTE | 2016-11-28 09:51 | Nephrology Progress Note ---
Nephrology Progress Note Date of Service Nov 28, 2016. Chief Complaint Follow up evaluation of this patient with ESRD on HD admitted w/ CHF Subjective Mr. Duenas was seen & examined in the ICU this morning. At the time of my evaluation he was sitting up in chair breathing comfortably on O2 at 2 L / min NC. Patient has ESRD due to diabetic nephropathy. He dialyzes MWF at [facility] HD unit under the care of Dr. Enrique Abebe (EDW 113 kg). Patient was only 1 kg above his dry weight at the time of admission. He was dialyzed yesterday for 3.5 L UF. HD complicated by hypotension. SBP 85 mmHG throughout treatment but the patient was asymptomatic. He reports that his SBP typically runs in the mid 80's during dialysis. CPK was checked and found to be normal. Troponin was initially elevated but has been trending down. ECG shows 1st degree AVB but no acute ischemic change. Patient has had no angina. He requests discharge from the hospital today. He notes that he is scheduled for HD at 6 am tomorrow morning. Review of Systems Constitutional: No fever Cardiovascular: No chest pain Respiratory: No dyspnea at rest Abdomen: No pain A complete review of systems was performed. Pertinent positives are noted above. All other systems are negative. Vital Signs Last 8 Hrs Date Time Temp Pulse Resp B/P Pulse Ox O2 Delivery O2 Flow Rate FiO2 11/28/16 08:58 36.8 84 16 128/65 Nasal Cannula 2.0 11/28/16 08:30 Nasal Cannula 2.0 11/28/16 08:00 76 11/28/16 07:58 82 121/63 11/28/16 07:00 77 11/28/16 04:00 Nasal Cannula 2.0 11/28/16 03:58 36.6 74 16 109/60 95 Nasal Cannula 2.0 11/28/16 02:58 75 15 90/53 100 Nasal Cannula 2.0 11/28/16 01:59 81 14 121/56 97 Nasal Cannula 2.0 I & O 24-Hour Column 11/28/16 08:00 Intake Total 600 ml Output Total 3585 ml Balance -2985 ml Last Recorded Weight Weight (Kilograms): 114.700 Physical Exam General Appearance: no apparent distress Head: normocephalic, atraumatic Eyes: PERRL, EOMI Neck: no adenopathy Respiratory/Chest: lungs clear, no respiratory distress Cardiovascular: regular rate, rhythm Abdomen/GI: normal bowel sounds, non tender, soft Extremities/Musculoskelatal: + pertinent finding (Bilateral BKA. L upper arm AVF + bruit) Neurologic/Psych: alert, oriented x 3 Laboratory Results Past 24 Hours 11/28/16 05:25 Red Blood Count 3.30, Mean Corpuscular Volume 92.4, Mean Corpuscular Hemoglobin 30.3, Mean Corpuscular Hemoglobin Concent 32.8, Mean Platelet Volume 9.6, Neutrophils (%) (Auto) 63.9, Lymphocytes (%) (Auto) 22.3, Monocytes (%) (Auto) 8.9, Eosinophils (%) (Auto) 4.2, Basophils (%) (Auto) 0.6, Neutrophils # (Auto) 4.51, Lymphocytes # (Auto) 1.58, Monocytes # (Auto) 0.63, Eosinophils # (Auto) 0.30, Basophils # (Auto) 0.04 11/28/16 05:25 Test 11/27/16 11:07 11/27/16 16:13 11/27/16 16:27 11/27/16 20:58 Bedside Glucose 146 mg/dl (70-99) 156 mg/dl (70-99) 187 mg/dl (70-99) Total Creatine Kinase 194 U/L (39-308) Troponin I 1.280 ng/ml (0-0.045) Test 11/27/16 21:30 11/28/16 05:25 11/28/16 05:46 Troponin I 0.946 ng/ml (0-0.045) 0.818 ng/ml (0-0.045) White Blood Count 7.07 K/uL (4.8-10.8) Red Blood Count 3.30 M/uL (4.7-6.1) Hemoglobin 10.0 g/dL (14.0-18.0) Hematocrit 30.5 % (42-52) Mean Corpuscular Volume 92.4 fL (80-100) Mean Corpuscular Hemoglobin 30.3 pg (25-34) Mean Corpuscular Hemoglobin Concent 32.8 g/dl (32-36) Platelet Count 192 K/uL (130-400) Mean Platelet Volume 9.6 fL (7.4-10.4) Neutrophils (%) (Auto) 63.9 % Lymphocytes (%) (Auto) 22.3 % Monocytes (%) (Auto) 8.9 % Eosinophils (%) (Auto) 4.2 % Basophils (%) (Auto) 0.6 % Neutrophils # (Auto) 4.51 K/uL (1.4-6.5) Lymphocytes # (Auto) 1.58 K/uL (1.2-3.4) Monocytes # (Auto) 0.63 K/uL (0.11-0.59) Eosinophils # (Auto) 0.30 K/uL (0-0.5) Basophils # (Auto) 0.04 K/uL (0-0.2) RDW Standard Deviation 52.6 fL (36.4-46.3) RDW Coefficient of Variation 15.4 % (11.5-14.5) Immature Granulocyte % (Auto) 0.1 % Immature Granulocyte # (Auto) 0.01 K/uL (0.00-0.02) Prothrombin Time 11.2 SECONDS (9.0-12.0) Prothromb Time International Ratio 1.0 (0.9-1.1) Activated Partial Thromboplast Time 28.1 SECONDS (21.0-31.0) Partial Thromboplastin Ratio 1.1 Anion Gap 9.0 mmol/L (3-11) Est Creatinine Clear Calc Drug Dose 15.5 ml/min Estimated GFR () 13.5 Estimated GFR (Non- 11.7 BUN/Creatinine Ratio 8.6 (10-20) Calcium Level 8.2 mg/dl (8.5-10.1) Total Bilirubin 0.5 mg/dl (0.2-1) Aspartate Amino Transf (AST/SGOT) 15 U/L (15-37) Alanine Aminotransferase (ALT/SGPT) 21 U/L (12-78) Alkaline Phosphatase 108 U/L (45-117) Total Creatine Kinase 222 U/L (39-308) Total Protein 6.9 gm/dl (6.4-8.2) Albumin 3.1 gm/dl (3.4-5.0) Globulin 3.8 gm/dl (2.5-4.0) Albumin/Globulin Ratio 0.8 (0.9-2) Bedside Glucose 141 mg/dl (70-99) Allergies Coded Allergies: Shellfish Allergy (Verified Allergy, Severe, ANGIOEDEMA, 11/27/16) Hydromorphone (Verified Adverse Reaction, Unknown, HALLUCINATIONS, 11/27/16 ) Medications Current Inpatient Medications Medications (Trade) Dose Ordered Sig/Miguel Route Start Time Stop Time Status Last Admin Dose Admin Heparin Sodium (Porcine) (Heparin Sq 5000 Unit/0.5ml) 5,000 unit Q8 SQ 11/27/16 07:15 12/27/16 07:14 11/28/16 05:30 5,000 UNIT Acetaminophen (Tylenol Tab) 650 mg Q4H PRN PO 11/27/16 04:00 12/27/16 03:59 Al Hydrox/Mg Hydrox/Simethicone (Maalox Max Susp) 15 ml Q4H PRN PO 11/27/16 04:00 12/27/16 03:59 Magnesium Hydroxide (Milk Of Magnesia Susp) 30 ml Q12H PRN PO 11/27/16 04:00 12/27/16 03:59 Zolpidem Tartrate (Ambien Tab) 5 mg HSZ PRN PO 11/27/16 04:00 12/27/16 03:59 Ondansetron HCl (Zofran Inj) 4 mg Q6H PRN IV 11/27/16 04:00 12/27/16 03:59 Nitroglycerin (Nitrostat Tab) 0.4 mg UD PRN SL 11/27/16 04:00 12/27/16 03:59 Nitroglycerin (Nitroglycerin 2% Oint) 1 inch Q6 EXT 11/27/16 05:00 12/27/16 04:59 11/28/16 05:29 1 INCH Morphine Sulfate (MoRPHine SULFATE INJ) 2 mg Q30M PRN IV 11/27/16 04:00 12/11/16 03:59 Polyethylene (Miralax Powder Packet) 17 gm DAILY PRN PO 11/27/16 04:00 12/27/16 03:59 Aspirin (Ecotrin Tab) 81 mg DAILY PO 11/27/16 09:00 12/27/16 08:59 11/28/16 08:31 81 MG Atorvastatin Calcium (Lipitor Tab) 40 mg DAILY PO 11/27/16 09:00 12/27/16 08:59 11/28/16 08:31 40 MG Carvedilol (Coreg Tab) 25 mg BID PO 11/27/16 09:00 12/27/16 08:59 11/28/16 08:30 25 MG Clopidogrel Bisulfate (plAVix TAB) 75 mg DAILY PO 11/27/16 09:00 12/27/16 08:59 11/28/16 08:32 75 MG Escitalopram Oxalate (Lexapro Tab) 10 mg DAILY PO 11/27/16 09:00 12/27/16 08:59 11/28/16 08:31 10 MG Folic Acid (Folvite Tab) 1 mg DAILY PO 11/27/16 09:00 12/27/16 08:59 11/28/16 08:31 1 MG Loratadine (Claritin Tab) 10 mg DAILY PO 11/27/16 09:00 12/27/16 08:59 11/28/16 08:29 10 MG Lorazepam (Ativan Tab) 0.5 mg Q6H PRN PO 11/27/16 04:30 12/27/16 04:29 11/27/16 23:34 0.5 MG Ranitidine HCl (zANTac TAB) 150 mg BID PO 11/27/16 09:00 12/27/16 08:59 11/28/16 08:32 150 MG Valsartan (Diovan Tab) 320 mg DAILY PO 11/27/16 09:00 12/27/16 08:59 11/28/16 08:31 320 MG Vitamin B Complex/ Vit C/Folic Acid (Nephrocaps) 1 cap DAILY PO 11/27/16 09:00 12/27/16 08:59 11/28/16 08:31 1 CAP Miscellaneous Information (Consult Glycemic Management Pharmacy) 1 ea UD PRN N/A 11/27/16 09:15 12/27/16 09:14 Insulin Detemir (Levemir Insulin) 40 units BID SC 11/27/16 09:30 12/27/16 09:29 11/28/16 08:38 40 UNITS Albuterol/ Ipratropium (Duoneb) 3 ml QIDR PRN INH 11/27/16 12:45 12/27/16 12:44 Insulin Aspart (novoLOG ASPART) SLIDING SCALE ACHS SC 11/27/16 16:30 12/27/16 16:29 11/28/16 08:41 4 UNITS Impression (1) ESRD (end stage renal disease) on dialysis (2) COPD (chronic obstructive pulmonary disease) (3) Multifocal pneumonia (4) CHF exacerbation (5) Acute respiratory distress Mr. Duenas is a 56-year-old male with ESRD due to diabetic nephropathy who was transferred to the ICU at [facility] from [facility] ED with acute respiratory distress. PMH significant for COPD, PVD s/p bilateral BKA, DM. He was found to have CHF. He is symptomatically improved following HD yesterday w / 3 L UF. He is requesting discharge from the hospital this morning. Recommendations CXR films reviewed this am. Patient has mild CHF. Clinically he is much improved following HD w/ 3 L UF. He is breathing comfortably this am. ECG was reviewed and negative for ischemic change. CPK remains within normal limits. Troponin is likely elevated due to ESRD. Troponin is trending downward. The patient declines echocardiogram or cardiology evaluation since he is free of chest pain and symptomatically improved. He is requesting discharge from the hospital this am. He is scheduled for his next HD tomorrow at 6 am at [facility] outpatient HD unit. He may be discharged from a nephrology perspective if O2 saturation remains acceptable on RA and patient remains CP free off nitropaste. Discussed w/ primary service this am.
--- NOTE | 2016-11-28 09:54 | Discharge Instructions ---
Discharge Instructions Admission Reason for Admission: Chf Exacerbation, Chronic Kidney Disease Due To Dm Discharge Discharge Diagnosis / Problem: CHF exacerbation related to kidney disease Discharge Goals Goal(s): Decrease discomfort, Improve function, Increase independence Activity Recommendations Activity Limitations: resume your previous activity . Instructions / Follow-Up Instructions / Follow-Up Dialysis tomorrow as per your usual schedule You should see your kidney doctor in the next week if you do not see him at dialysis. Call your Primary Care doctor if any of the following symptoms or problems start or get worse: * Shortness of breath or difficulty breathing * Wake up at night short of breath * Chest pain * Cough * Swelling of your hands, feet, or legs * More fatigued or tired with your normal activity * Palpitations - sudden fast heart beats WEIGHT * Weigh yourself every morning after using the bathroom. * Use the same scale. * Wear the same amount of clothing. * Write your weight down on a chart. * Call your Primary Care doctor if you gain more than 2-3 pounds in 1-2 days. MEDICATIONS * Use this discharge instruction sheet for medication instructions. * Take your medications at the time your doctor ordered. * Do not skip a dose of your medicines. * If you miss a dose of medicine, take it as soon as possible, but DO NOT DOUBLE A DOSE. * Read your medicine information when you get home. * Know all of the side effects of your medicine. If in doubt, ask your pharmacist * Call your Primary Care doctor's office if you have any side effects. * Be sure all of your doctors know what medicine and herbs you take (including cold, flu, and herbal medicine). Take the following with you to your follow-up doctor appointments: * Weight Chart * Medication List * List of questions Do not drink excessive alcohol, beer or wine. Current Hospital Diet Patient's current hospital diet: Diabetes Type 2 Diet, Renal Diet Discharge Diet Recommended Diet: Diabetes Type 2 Diet, Renal Diet Pending Studies Studies pending at discharge: no Medical Emergencies . Who to Call and When: Call 911 or go to the Emergency Room if: * If at any time you feel your situation is an emergency * You have tightness or pain in your chest that does not go away with rest or Nitroglycerin * You are very short of breath even with rest . Non-Emergent Contact Non-Emergency issues call your: Assembly Instructions Writer . . "Provider Documentation" section prepared by Barbara Guerra. VTE Core Measure Inpt VTE Proph given/why not?: Unfractionated heparin SQ
--- NOTE | 2016-11-28 10:00 | Discharge Summary ---
Discharge Summary Admission Date: Nov 27, 2016 at 03:52 Discharge Date: Nov 28, 2016 Discharge Disposition: Home Principal Diagnosis: CHF exacerbation related to ESRD Problems/Secondary Diagnoses: DM ESRD with HD on M/W/F b/l BKA GERD HTN HLD PAD Consultations: Dr. Rothman Medication Reconciliation Continued Medications: Aspirin (Aspirin) 81 Mg Tab 1 TAB PO DAILY for 30 Days, #30 TAB 3 Refills Atorvastatin (Lipitor) 40 Mg Tab 1 TAB PO DAILY for 90 Days, #90 TAB 1 Refill Bimatoprost (Lumigan) 0.01 % Majo 1 DROPS OP HS for 90 Days, #7.5 ML 3 Refills Brimonidine Tartrate-Timolol M (Combigan) 1 Majo Majo Carvedilol (Coreg) 25 Mg Tab 1 TAB PO BID for 30 Days, #60 TAB 5 Refills Cholecalciferol (Vitamin D3) 1,000 Unit Tab 1 TAB PO DAILY for 30 Days, #30 TAB 5 Refills Clopidogrel (Plavix) 75 Mg Tab 75 MG PO DAILY, TAB Doxazosin Mesylate (Doxazosin Mesylate) 8 Mg Tab 1 TAB PO DAILY for 30 Days, #30 TAB 5 Refills Escitalopram (Lexapro) 10 Mg Tab 10 MG PO DAILY, TAB Folic Acid (Folvite) 1 Mg Tab 1 MG PO DAILY, TAB Insulin Aspart (Novolog Flexpen) 100 Units/Ml Inj Insulin Detemir (Levemir) 100 Units/Ml Inj Lactobacillus (Acidophilus) 1 Tab Tab Loratadine (Claritin) 10 Mg Tab 10 MG PO DAILY, TAB Lorazepam (Ativan) 0.5 Mg Tab 0.5 MG PO Q6H PRN for Anxiety, TAB Omeprazole (Prilosec) 10 Mg Cap 10 MG PO, CAP Ranitidine (Zantac) 150 Mg Tab 150 MG PO BID, TAB Valsartan (Diovan) 320 Mg Tab 320 MG PO DAILY, TAB Vitamin B Cmplx/Vitc/Folic Ac (Nephrocaps) Cap 1 CAP PO DAILY for 30 Days, #30 CAP 11 Refills Zolpidem Tartrate (Zolpidem Tartrate) 5 Mg Tab 1 TAB PO HS PRN for Sleep for 30 Days, #30 TAB 2 Refills Discharge Exam Pt feeling much improved today. No further SOB and feels he is at his baseline. He has had no chest pain with any of his recent health issues. He states he is below his usual dry weight today. He ate breakfast without issue. Pt denies fever, abd pain, n/v/c/d, LE pain or swelling. ROS as noted above, otherwise neg. Physical Exam: General Appearance: no apparent distress, + obese Respiratory/Chest: normal breath sounds, no respiratory distress Cardiovascular: regular rate, rhythm, no edema Abdomen / GI: non tender, soft Extremities: no calf tenderness, no pedal edema Neurologic/Psychiatric: alert, normal mood/affect Skin: normal color, warm/dry Hospital Course 56 yo M with end stage renal disease, on dialysis, with shortness of breath - likely CHF exacerbation as opposed to pneumonia as pt is afebrile and has nonproductive cough SOB: acute CHF exacerbation from volume overload related to ESRD CXR s/p HD is neg for PNA Pt did have several doses of abx for presumed PNA as outpt, however no abx since admission and with improvement of sx, afebrile, WBC WNL Elevated trop: in the setting of ESRD and likely demand ischemia related to volume overload Trop was 1.2 and has trended down No chest pain EKG with 1st degree AV block and pt is asx HyperK: noted on admission and resolved s/p HD HD course: Patient was only 1 kg above his dry weight at the time of admission. He was dialyzed yesterday for 3.5 L UF. HD complicated by hypotension. SBP 85 mmHG throughout treatment but the patient was asymptomatic. He reports that his SBP typically runs in the mid 80's during dialysis. CPK was checked and found to be normal. End stage renal disease - Continue Vit D3, Nephrocaps HD tomorrow as per usual CAD - Continue aspirin/plavix Hypertension - Continue cardevilol 25mg BID Hypercholesterolemia - Continue atorvastatin 40mg daily Morbid obesity CODE STATUS: Pt has advance directive, reports he would only want to be intubated for 72 hours if intubation was indicated, and would want CPR. is POA. Total Time Spent: Greater than 30 minutes This includes examination of the patient, discharge planning, medication reconciliation, and communication with other providers. Discharge Instructions Please refer to the electronic Patient Visit Report (Discharge Instructions) for additional information. Follow-Up Dialysis tomorrow as per usual schedule Dr. Abebe within a week Additional Copies To Tera Lomeli D.O.; Enrique Abebe M.D.
== END 2016-11-28 12:44 | disposition home or self-care (01) | DRG 291 ==
LOC: C.MSICU 03:52
PROVIDERS: ADMIT Internal Medicine; ATTEND Family Medicine
DX: I50.9 Heart failure, unspecified (principal); N18.6 End stage renal disease; Z68.43 Body mass index [BMI] 50.0-59.9, adult; I24.8 Other forms of acute ischemic heart disease; J80 Acute respiratory distress syndrome; I13.2 Hypertensive heart and chronic kidney disease with heart failure and with stage 5 chronic kidney disease, or end stage renal disease; E11.21 Type 2 diabetes mellitus with diabetic nephropathy; K21.9 Gastro-esophageal reflux disease without esophagitis; E66.01 Morbid (severe) obesity due to excess calories; I25.10 Atherosclerotic heart disease of native coronary artery without angina pectoris; E78.00 Pure hypercholesterolemia, unspecified; R79.89 Other specified abnormal findings of blood chemistry; I95.9 Hypotension, unspecified; E78.5 Hyperlipidemia, unspecified; J44.9 Chronic obstructive pulmonary disease, unspecified; I44.0 Atrioventricular block, first degree; I73.9 Peripheral vascular disease, unspecified; E11.51 Type 2 diabetes mellitus with diabetic peripheral angiopathy without gangrene; E87.70 Fluid overload, unspecified; E87.5 Hyperkalemia; Z99.2 Dependence on renal dialysis; Z79.82 Long term (current) use of aspirin; Z79.02 Long term (current) use of antithrombotics/antiplatelets; Z89.512 Acquired absence of left leg below knee; Z89.511 Acquired absence of right leg below knee; Z79.4 Long term (current) use of insulin; Z79.899 Other long term (current) drug therapy